=== PATIENT | female | born 1950 | race Caucasian/White ===

== ENCOUNTER 2017-02-16 10:25 | Outpatient (CLI) | payer MEDICARE, OTHER ==
[2017-02-16 11:04] LABS: BASOPHILS # (AUTO) 0.1 10^3/uL (0.0-0.1); BASOPHILS % (AUTO) 0.9 %; EOSINOPHILS # (AUTO) 0.3 10^3/uL (0.0-0.7); EOSINOPHILS % (AUTO) 5.7 %; HCT - HEMATOCRIT 43.4 % (37.0-47.0); HGB - HEMOGLOBIN 14.3 g/dL (12.0-16.0); LYMPHOCYTES # (AUTO) 1.3 10^3/uL (1.5-3.5); LYMPHOCYTES % (AUTO) 22.5 %; MEAN CORPUSCULAR HEMOGLOBIN 29.6 pg (27.0-31.0); MEAN CORPUSCULAR VOLUME 89.9 fL (81.0-99.0); MEAN PLATELET VOLUME 6.9 fL (7.9-10.8); MONOCYTES # (AUTO) 0.6 10^3/uL (0.0-1.0); MONOCYTES % (AUTO) 9.8 %; NEUTROPHILS # (AUTO) 3.6 10^3/uL (1.5-6.6); NEUTROPHILS % (AUTO) 61.1 %; RED BLOOD COUNT 4.83 10^6/uL (4.20-5.40); RED CELL DISTRIBUTION WIDTH 13.5 % (12.0-15.0); UNCORRECTED WHITE BLOOD COUNT 5.8 x10^3/uL; WHITE BLOOD COUNT 5.8 x10^3/uL (4.8-10.8)
[2017-02-16 11:10] LABS: ALBUMIN/GLOBULIN RATIO 1.6 (1.0-2.2); BILIRUBIN,TOTAL 0.5 mg/dL (0.2-1.0); BUN - BLOOD UREA NITROGEN 12 mg/dL (6-20); CALCIUM 8.8 mg/dL (8.5-10.3); CARBON DIOXIDE - CO2 23 mmol/L (21-32); CHLORIDE 108 mmol/L (101-111); CHOL/HDL RATIO 3.3 (<4.4); CHOLESTEROL 171 mg/dL; CREATININE 0.7 mg/dL (0.4-1.0); GFR - MDRD 84 (>89); GLUCOSE 109 mg/dL (70-100); HDL CHOLESTEROL 52 mg/dL; LDL/HDL RATIO 1.8 (<4.4); POTASSIUM 3.8 mmol/L (3.5-5.0); SODIUM 140 mmol/L (135-145); TOTAL PROTEIN 6.5 g/dL (6.7-8.2); TRIGLYCERIDES 117 mg/dL; VLDL CHOLESTEROL 23 mg/dL
[2017-02-16 11:25] LABS: WBC MORPHOLOGY (MULTIPLE) 2+ REACTIVE LYMPHS (NORMAL)
== END 2017-02-16 10:26 | disposition home or self-care (01) ==
LOC: LAB 10:25
PROVIDERS: ATTEND Family Medicine
DX: E66.01 Morbid (severe) obesity due to excess calories (principal); E78.5 Hyperlipidemia, unspecified
CPT/HCPCS: 36415; 80053; 80061; 84443; 85025

== ENCOUNTER 2017-02-18 10:03 | Outpatient (CLI) | payer MEDICARE, OTHER ==
--- NOTE | 2017-02-20 13:16 | Mammography Report ---
DIGITAL SCREENING MAMMOGRAM: 02/18/2017 CLINICAL INDICATION: A 67-year-old for screening. COMPARISON: 01/2016, 12/2014, 10/2013, 07/2012, 10/2010, 11/2009 TECHNIQUE: Routine CC and MLO projections were obtained of the breasts. FINDINGS: The breasts demonstrate scattered fibroglandular densities bilaterally. Coarse and puncta te, typically benign calcifications are present. No suspicious masses, clustered microcalcifications , or regions of architectural distortion are identified. IMPRESSION: BENIGN FINDINGS. RECOMMENDATION: Routine annual screening unless otherwise clinically indicated. BIRADS CATEGORY 2 - BENIGN FINDINGS. STANDARD QUALIFYING STATEMENTS 1. This examination was reviewed with the aid of Computer-Aided Detection (CAD). 2. A negative or benign imaging report should not delay biopsy if clinically suspicious findings are present. Consider surgical consultation if warranted. More than 5% of cancers are not identified by i maging. 3. Dense breasts may obscure an underlying neoplasm. JOB #: [id number] EXT JOB #:[id number]
== END 2017-02-18 10:04 | disposition home or self-care (01) ==
LOC: DI 10:03
PROVIDERS: ATTEND Family Medicine
DX: Z12.31 Encounter for screening mammogram for malignant neoplasm of breast (principal)
CPT/HCPCS: 77067

== ENCOUNTER 2017-02-25 08:54 | Outpatient (CLI) | payer MEDICARE, OTHER | END 2017-02-25 08:55 | disposition home or self-care (01) | LOC: DI 08:54 | PROVIDERS: ATTEND Family Medicine | DX: R00.2 Palpitations (principal); R01.1 Cardiac murmur, unspecified | CPT/HCPCS: 93306 ==

== ENCOUNTER 2017-09-30 20:38 | Emergency (ER) | payer MEDICARE, OTHER ==
[2017-09-30 20:47] VITALS: BP 141/88
[2017-09-30] MEDS ORDERED: predniSONE 20 MG TABLET PO STA (21:03)
--- NOTE | 2017-09-30 21:10 | ED Physician Documentation ---
PD HPI SKIN - Stated complaint Stated Complaint: BEE STING - Chief complaint Chief Complaint: Allergic Rx - History obtained from History obtained from: Patient - History of Present Illness Timing - onset: Yesterday Timing - details: Abrupt onset, Still present Location: RLE Quality / character: Painful, Discolored Associated symptoms: No: Fever, Myalgias Contributing factors: Insect bite /sting Similar symptoms before: No diagnosis Recently seen: Not recently seen - Additional information Additional information: Patient is a 67 year old female presenting to the emergency department after being stung by a bee. patient states that it stung her two days ago and the area of swelling is getting worse. Patient has tried ice and bendaryl with little relief. Patient has had symptoms like this once before on her arm. patient denies any wheezing, throat swelling, nausea or vomiting. Review of Systems Ten Systems: 10 systems reviewed and negative Respiratory: reports: Wheezing. 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 HEENT: Tonsil/Adenoidectomy - Present Medications Home Medications: Ambulatory Orders Medication Instructions Recorded Confirmed predniSONE [Prednisone] 40 mg PO DAILY 5 Days tablet 09/30/17 - Allergies Allergies/Adverse Reactions: Allergies Allergy/AdvReac Type Severity Reaction Status Date / Time Penicillins Allergy Unknown Verified 09/30/17 20:47 - Social History Does the pt smoke?: No Smoking Status: Never smoker Does the pt drink ETOH?: No Does the pt have substance abuse?: No - Immunizations Immunizations are current?: Yes PD ED PE NORMAL - Vitals Vital signs reviewed: Yes - General General: Alert and oriented X 3, No acute distress - HEENT HEENT: Atraumatic - Neck Neck: Supple, no meningeal sign - Cardiac Cardiac: RRR - Abdomen Abdomen: Soft - Neuro Neuro: Alert and oriented X 3 Eye Opening: Spontaneous - Psych Psych: Normal mood PD ED PE EXPANDED - HEENT HEENT: Other (no soft palate swelling) - Respiratory Respiratory: No: Distress, Wheezing - Extremities Extremities: Right thigh (erythema and tenderness 15cm by 8cm of right thigh) Results - Vitals Vitals: Vital Signs - 24 hr 09/30/17 20:44 Temperature 35.7 C L Heart Rate 104 H Respiratory 17 Rate Blood Pressure 141/88 H O2 Saturation 94 Oxygen O2 Source Room air PD MEDICAL DECISION MAKING - ED course Complexity details: reviewed old records, re-evaluated patient, considered differential, d/w patient ED course: Patient was seen and examined at bedside. Patient's symptoms were likely secondary to the insect sting and unlikely cellulitic at this time. Patient was treated with prednisone and she had benadryl at home and was driving. Patient required no further work up at this time and was stable for discharge with outpatient follow up. Departure - Departure Disposition: , Self Care Clinical Impression: Insect bites and stings Condition: Good Instructions: ED Bite Sting Insect Gen Allergic React Follow-Up: Aiden Zamora DO [Primary Care Provider] - As Needed Prescriptions: predniSONE [Prednisone] 40 mg PO DAILY 5 Days tablet Comments: Your symptoms today are being caused by the bee sting. you should continue with benadryl 50mg every 8hrs and prednisone daily. you can apply topical creams and ice to the area. you should return to the emergency department for shortness of breath, facial swelling, new worsening or uncontrollable symptoms.
== END 2017-09-30 21:17 | disposition home or self-care (01) ==
LOC: ED 20:38
DX: T63.441A Toxic effect of venom of bees, accidental (unintentional), initial encounter (principal)
CPT/HCPCS: 99283; J7512

== ENCOUNTER 2018-02-03 07:54 | Outpatient (CLI) | payer MEDICARE, OTHER ==
[2018-02-03 08:55] LABS: BASOPHILS % (AUTO) 0.3 %; EOSINOPHILS # (AUTO) 0.2 10^3/uL (0.0-0.7); EOSINOPHILS % (AUTO) 3.2 %; HGB - HEMOGLOBIN 14.5 g/dL (12.0-16.0); LYMPHOCYTES # (AUTO) 1.6 10^3/uL (1.5-3.5); LYMPHOCYTES % (AUTO) 29.4 %; MEAN CORPUSCULAR HEMOGLOBIN 30.4 pg (27.0-31.0); MEAN CORPUSCULAR VOLUME 89.5 fL (81.0-99.0); MEAN PLATELET VOLUME 7.4 fL (7.9-10.8); MONOCYTES # (AUTO) 0.5 10^3/uL (0.0-1.0); NEUTROPHILS # (AUTO) 3.2 10^3/uL (1.5-6.6); NEUTROPHILS % (AUTO) 58.1 %; PLT - PLATELET COUNT 320 10^3/uL (130-450); RED BLOOD COUNT 4.78 10^6/uL (4.20-5.40); RED CELL DISTRIBUTION WIDTH 13.8 % (12.0-15.0); WHITE BLOOD COUNT 5.5 x10^3/uL (4.8-10.8)
[2018-02-03 09:05] LABS: ALBUMIN 3.9 g/dL (3.2-5.5); ALBUMIN/GLOBULIN RATIO 1.6 (1.0-2.2); ALKALINE PHOSPHATASE 97 IU/L (42-121); ALT ALANINE AMINOTRANSFERASE 20 IU/L (10-60); AST ASPARTATE AMINOTRANSFERASE 17 IU/L (10-42); BILIRUBIN,TOTAL 0.9 mg/dL (0.2-1.0); BUN - BLOOD UREA NITROGEN 12 mg/dL (6-20); CALCIUM 8.7 mg/dL (8.5-10.3); CARBON DIOXIDE - CO2 25 mmol/L (21-32); CHLORIDE 108 mmol/L (101-111); CHOLESTEROL 187 mg/dL; CREATININE 0.8 mg/dL (0.4-1.0); GFR - MDRD 72 (>89); GLUCOSE 113 mg/dL (70-100); HDL CHOLESTEROL 47 mg/dL; LDL CHOLESTEROL,CALCULATED 113 mg/dL; LDL/HDL RATIO 2.4 (<4.4); SODIUM 139 mmol/L (135-145); TOTAL PROTEIN 6.3 g/dL (6.7-8.2); VLDL CHOLESTEROL 27 mg/dL
== END 2018-02-03 07:55 | disposition home or self-care (01) ==
LOC: LAB 07:54
PROVIDERS: ATTEND Family Medicine
DX: E78.5 Hyperlipidemia, unspecified (principal); R00.2 Palpitations
CPT/HCPCS: 36415; 80053; 80061; 83721; 84443; 85025

== ENCOUNTER 2018-02-22 09:59 | Outpatient (CLI) | payer MEDICARE, OTHER ==
--- NOTE | 2018-02-23 11:51 | Mammography Report ---
Reason: SCREENwTOMO Procedure Date: 02/22/2018 Accession Number: [id number] / [id number] Procedure: [facility]NAZ - Screening Mammo w/Sunny CPT Code: FULL RESULT: EXAM: Screening Mammo w/Sunny DATE: 02/22/2018 11:05 AM CLINICAL HISTORY: Routine screening TECHNIQUE: Bilateral CC and MLO views were obtained. COMPARISON: 02/18/2017, 02/06/2016, 01/02/2015, 11/01/2013 FINDINGS: There are scattered fibroglandular densities. No significant interval change. No suspicious masses, clustered microcalcifications, skin thickening, or regions of architectural distortion are identified. Multiple bilateral nodular densities and coarse calcifications appear unchanged. IMPRESSION: Benign findings RECOMMENDATION: Routine annual screening unless otherwise clinically indicated. BIRADS CATEGORY 2: Benign findings STANDARD QUALIFYING STATEMENTS: 1. This examination was not reviewed with the aid of Computer-Aided Detection (CAD). 2. A negative or benign imaging report should not delay biopsy if clinically suspicious findings are present. Consider surgical consultation if warrented. More than 5% of cancers are not identified by imaging. 3. Dense breasts may obscure an underlying neoplasm. 4. This examination was reviewed with the aid of 3D breast imaging (tomosynthesis).
== END 2018-02-22 10:00 | disposition home or self-care (01) ==
LOC: DI 09:59
DX: Z12.31 Encounter for screening mammogram for malignant neoplasm of breast (principal)
CPT/HCPCS: 77063; 77067

== ENCOUNTER 2019-03-09 11:04 | Outpatient (CLI) | payer MEDICARE, OTHER ==
--- NOTE | 2019-03-11 10:54 | Mammography Report ---
Reason: SCREENING MAMMO Procedure Date: 03/09/2019 Accession Number: [id number] / [id number] Procedure: SANAZ - Screening Mammo w/Sunny CPT Code: Final Report FULL RESULT: EXAM: Screening Mammo w/Sunny DATE: 03/09/2019 11:37 AM CLINICAL HISTORY: Routine screening TECHNIQUE: (B) - Bilateral CC and MLO views were obtained. COMPARISON: 02/22/2018, 02/18/2017, 02/06/2016, 01/02/2015, 11/01/2013, 08/02/2012, 11/06/2010 and 11/13/2009 PARENCHYMAL PATTERN: (A) - The breasts demonstrate scattered fibroglandular densities bilaterally. FINDINGS: No significant interval change. There are no suspicious masses, calcifications, or areas of distortion. Scattered benign calcifications and nodular areas of asymmetric density are unchanged. IMPRESSION: Negative examination. BI-RADS category 1. RECOMMENDATION: (ANNUAL) - Recommend routine annual screening mammography. BI-RADS CATEGORY: (1) - Negative. STANDARD QUALIFYING STATEMENTS: 1. This examination was not reviewed with the aid of Computer-Aided Detection (CAD). 2. A negative or benign imaging report should not preclude biopsy if clinically suspicious findings are present. 3. Dense breasts may obscure an underlying neoplasm. 4. This examination was reviewed with the aid of 3D breast imaging (tomosynthesis).
== END 2019-03-09 11:05 | disposition home or self-care (01) ==
LOC: DI 11:04
DX: Z12.31 Encounter for screening mammogram for malignant neoplasm of breast (principal)
CPT/HCPCS: 77063; 77067

== ENCOUNTER 2019-03-22 08:00 | Outpatient (CLI) | payer MEDICARE, OTHER ==
[2019-03-22 18:24] LABS: BASOPHILS % (AUTO) 0.7 %; EOSINOPHILS # (AUTO) 0.2 10^3/uL (0.0-0.7); EOSINOPHILS % (AUTO) 3.4 %; HGB - HEMOGLOBIN 13.7 g/dL (12.0-16.0); LYMPHOCYTES # (AUTO) 1.4 10^3/uL (1.5-3.5); LYMPHOCYTES % (AUTO) 24.4 %; MEAN CORPUSCULAR HEMOGLOBIN 28.7 pg (27.0-31.0); MEAN CORPUSCULAR HGB CONC 30.2 g/dL (32.0-36.0); MEAN CORPUSCULAR VOLUME 95.2 fL (81.0-99.0); MEAN PLATELET VOLUME 9.5 fL (7.9-10.8); MONOCYTES # (AUTO) 0.7 10^3/uL (0.0-1.0); MONOCYTES % (AUTO) 12.6 %; NEUTROPHILS # (AUTO) 3.3 10^3/uL (1.5-6.6); NEUTROPHILS % (AUTO) 58.2 %; PLT - PLATELET COUNT 350 10^3/uL (130-450); RED BLOOD COUNT 4.77 10^6/uL (4.20-5.40); RED CELL DISTRIBUTION WIDTH 13.5 % (12.0-15.0); WHITE BLOOD COUNT 5.7 x10^3/uL (4.8-10.8)
[2019-03-22 18:52] LABS: ALBUMIN 3.9 g/dL (3.2-5.5); ALBUMIN/GLOBULIN RATIO 1.6 (1.0-2.2); ALKALINE PHOSPHATASE 88 IU/L (42-121); ALT ALANINE AMINOTRANSFERASE 20 IU/L (10-60); AST ASPARTATE AMINOTRANSFERASE 20 IU/L (10-42); BILIRUBIN,TOTAL 0.5 mg/dL (0.2-1.0); BUN - BLOOD UREA NITROGEN 13 mg/dL (6-20); CALCIUM 8.5 mg/dL (8.5-10.3); CARBON DIOXIDE - CO2 24 mmol/L (21-32); CHLORIDE 109 mmol/L (101-111); CHOLESTEROL 206 mg/dL; CREATININE 0.7 mg/dL (0.4-1.0); GFR - MDRD 83 (>89); GLUCOSE 94 mg/dL (70-100); HDL CHOLESTEROL 51 mg/dL; LDL CHOLESTEROL,CALCULATED 127 mg/dL; LDL/HDL RATIO 2.5 (<4.4); SODIUM 141 mmol/L (135-145); TOTAL PROTEIN 6.3 g/dL (6.7-8.2); VLDL CHOLESTEROL 28 mg/dL
[2019-03-22 18:54] LABS: HB2 TOTAL 14.1 g/dL; HEMOGLOBIN A1C 0.66 g/dL; HEMOGLOBIN A1C % 6.4 % (4.6-6.2)
== END 2019-03-22 23:59 | disposition home or self-care (01) ==
LOC: LAB.WCP 08:00
PROVIDERS: ATTEND Family Medicine
DX: E66.01 Morbid (severe) obesity due to excess calories (principal); R07.89 Other chest pain; E78.5 Hyperlipidemia, unspecified
CPT/HCPCS: 36415; 80053; 80061; 83036; 83721; 85025

== ENCOUNTER 2019-04-28 07:40 | Day surgery (SDC) | payer MEDICARE, OTHER ==
[2019-04-28] MEDS ORDERED: LACTATED RINGERS 1,000 ML IV ONE ×2 (08:10→11:00)
[2019-04-28] MEDS ORDERED: ONDANSETRON 4 MG/2 ML VIAL ONE ×2 (08:56→10:32)
[2019-04-28] MEDS ORDERED: MIDAZOLAM 2 MG/2 ML VIAL IVP ONE ×2 (09:01→09:41)
[2019-04-28] MEDS ORDERED: fentaNYL 100 MCG/2 ML VIAL IVP ONE (09:01)
[2019-04-28] MEDS ORDERED: fentaNYL 250 MCG/5 ML VIAL IVP ONE (09:41)
[2019-04-28 12:12] VITALS: BP 111/85
== END 2019-04-28 07:41 | disposition home or self-care (01) ==
LOC: SDS 07:40
PROVIDERS: ATTEND Surgery
PROC: 0DB48ZX Excision of Esophagogastric Junction, Via Natural or Artificial Opening Endoscopic, Diagnostic (ICD-10-PCS; principal; 2019-04-28 09:00)
DX: K21.0 Gastro-esophageal reflux disease with esophagitis (principal); E66.01 Morbid (severe) obesity due to excess calories; Z68.41 Body mass index [BMI] 40.0-44.9, adult
CPT/HCPCS: 43239; J3010; J7120

== ENCOUNTER 2020-02-22 10:40 | Outpatient (CLI) | payer MEDICARE, OTHER ==
[2020-02-22] MEDS ORDERED: IOVERSOL 320 50 ML VIAL ONE (10:54)
[2020-02-22 11:11] LABS: CREATININE 0.8 mg/dL (0.4-1.0)
[2020-02-22] MEDS ORDERED: IOVERSOL 320 100 ML VIAL IVP ONE ×2 (12:19→17:35)
--- NOTE | 2020-02-22 13:33 | CT Report ---
PROCEDURE: CHEST W INDICATIONS: ESOPHAGEAL CA CONTRAST: IV CONTRAST: Optiray 320 ml: 100 PO CONTRAST: *NO PO CONTRAST TECHNIQUE: After the administration of intravenous contrast, 5 mm thick sections acquired from the pulmonary api keri to the posterior costophrenic angles. 7 mm thick coronal MIP reformats were acquired. For radia tion dose reduction, the following was used: automated exposure control, adjustment of mA and/or kV according to patient size. COMPARISON: None. FINDINGS: Image quality: Excellent. Lungs and pleura: No acute air space opacities. No pleural effusions or pneumothorax. Central and peripheral airways are patent and normal in caliber. Mediastinum: Heart size is normal. No pericardial effusion. Coronary artery disease. No mediastina l or hilar adenopathy by size criteria. Thoracic aorta and central pulmonary arteries are normal in size. Esophagus is normal in caliber. Small hiatal hernia. Bones and chest wall: No suspicious bony lesions. No vertebral body compression fractures. No axil alley or supraclavicular adenopathy by size criteria. Thyroid gland is unremarkable as visualized. Abdomen: Gallstones are present in the gallbladder. IMPRESSION: 1. No evidence metastatic disease in the chest. 2. Small hiatal hernia. 3. Coronary artery disease. 4. Gallstones. Reviewed by: Reginald Flores MD on 02/22/2020 1:32 PM PDT Approved by: Reginald Flores MD on 02/22/2020 1:32 PM PDT Station ID: [id number]
--- NOTE | 2020-02-22 13:46 | CT Report ---
PROCEDURE: Abdomen/Pelvis W INDICATIONS: ESOPHAGEAL CA CONTRAST: IV CONTRAST: Optiray 320 ml: 100 PO CONTRAST: *NO PO CONTRAST TECHNIQUE: After the administration of oral and intravenous contrast, 5 mm thick sections acquired from the diap hragms to the symphysis. 5 mm thick coronal and sagittal reformats were acquired. For radiation dos e reduction, the following was used: automated exposure control, adjustment of mA and/or kV accordin g to patient size. COMPARISON: None. FINDINGS: Image quality: Excellent. ABDOMEN: Lung bases: Lung bases are clear. Heart size is normal. There is an ill-defined nodular density in the region of the left epicardial fat is of uncertain etiology. Measures approximately 1.0 cm on marielle ge 9/2. It may represent a lymph node. Solid organs: Liver and spleen are normal in size and enhancement. There is a small low-density live r lesion on image 21/2, which is too small to characterize, and likely represents a cyst versus heman gioma. No suspicious liver lesions are identified. Gallbladder contains gallstones Biliary system i s non dilated. Pancreas enhances normally. No adrenal nodules. Kidneys demonstrate normal size and enhancement, without hydronephrosis. Peritoneum and bowel: There is thickening in the region of the lower esophagus. This is near the GE j unction. Bowel loops demonstrate normal wall thickness and caliber. No free fluid or air. Nodes and vessels: No retroperitoneal or mesenteric adenopathy by size criteria. Aorta and inferior vena cava are normal in size. Miscellaneous: No ventral hernias. PELVIS: Genitourinary: Bladder wall thickness is normal. Miscellaneous: No inguinal hernias or adenopathy. Bones: No suspicious bony lesions. No vertebral body compression fractures. IMPRESSION: 1. Thickening in the region of the lower esophagus near the GE junction may represent the patient's e sophageal primary. 2. Possible mildly prominent lymph node in the left epicardial fat. 3. Gallstones. 4. Otherwise unremarkable study. Reviewed by: Reginald Flores MD on 02/22/2020 1:44 PM PDT Approved by: Reginald Flores MD on 02/22/2020 1:44 PM PDT Station ID: [id number]
[2020-02-22] MEDS ORDERED: IOVERSOL 320 50 ML VIAL PO ONE (17:35)
== END 2020-02-22 10:41 | disposition home or self-care (01) ==
LOC: DI 10:40
PROVIDERS: ATTEND Internal Medicine Gastroenterology
DX: C15.9 Malignant neoplasm of esophagus, unspecified (principal); K44.9 Diaphragmatic hernia without obstruction or gangrene; K80.20 Calculus of gallbladder without cholecystitis without obstruction; I25.10 Atherosclerotic heart disease of native coronary artery without angina pectoris
CPT/HCPCS: 36415; 71260; 74177; 82565; 84520; Q9967

== ENCOUNTER 2020-03-23 16:40 | Outpatient (CLI) | payer MEDICARE, OTHER | END 2020-03-23 16:41 | disposition home or self-care (01) | LOC: COV 16:40 | PROVIDERS: ATTEND Surgery | DX: Z01.812 Encounter for preprocedural laboratory examination (principal); Z20.828 Contact with and (suspected) exposure to other viral communicable diseases ==

== ENCOUNTER 2020-03-28 08:55 | Outpatient (CLI) | payer MEDICARE, OTHER | END 2020-03-28 08:56 | disposition home or self-care (01) | LOC: DI 08:55 | PROVIDERS: ATTEND Surgery | DX: C15.9 Malignant neoplasm of esophagus, unspecified (principal) | CPT/HCPCS: 93306 ==

== ENCOUNTER 2020-03-29 10:48 | Day surgery (SDC) | payer MEDICARE, OTHER ==
[2020-03-29] MEDS ORDERED: CEFAZOLIN SODIUM IN 0.9 % NACL 2 GM/100 ML BAG IV ONE (11:05)
[2020-03-29] MEDS ORDERED: LACTATED RINGERS 1,000 ML IV ONE ×2 (11:33→14:22)
--- NOTE | 2020-03-29 12:39 | ANESTHESIA ---
Pre-Anesthesia VS, & Labs - Diagnosis esophageal carcinoma - Procedure port placement Vital Signs: Temp Pulse Resp BP Pulse Ox 36.1 C L 90 16 138/72 H 96 03/29/20 11:00 03/29/20 11:00 03/29/20 11:00 03/29/20 11:00 03/29/20 11:00 Height: 5 ft 6 in Weight (kg): 113.5 kg Body Mass Index: 40.4 BMI Classification: Morbidly Obese - NPO >8 hours - Is Patient ?: No - Lab Results Lab results reviewed: Yes Home Medications and Allergies Atorvastatin [Lipitor] 10 mg PO DAILY 04/27/19 Allergies/Adverse Reactions: Allergies Allergy/AdvReac Type Severity Reaction Status Date / Time Penicillins Allergy Unknown Verified 03/16/20 09:59 Anes History & Medical History - Anesthetic History Anesthesia Complications: reports: Post-Operative Nausea/Vomiting (NM EGD), Muscle weakness Family history of Malignant Hyperthermia: Denies - Medical History Cardiovascular: reports: High cholesterol Pulmonary: reports: None Gastrointestinal: reports: None Urinary: reports: None Musculoskeletal: reports: None Endocrine/Autoimmune: reports: None Skin: reports: None Smoking Status: Never smoker - Surgical History General: Colonoscopy, EGD Eyes Ears Nose Throat (EENT): Tonsil/Adenoidectomy Gynecologic: Hysterectomy Exam General: Alert, Oriented x3, Cooperative Dental: WNL Mouth Openin Fingerbreadth Neck Mobility: Normal Mallampati classification: II Respiratory: Lungs clear, Normal breath sounds, No respiratory distress Cardiovascular: Regular rate Neurological: Normal speech Mental/Cognitive Status: Alert/Oriented X3, Normal for patient Cognitive Status: Within normal limits Plan Anesthesia Type: MAC Consent for Procedure(s) Verified and Reviewed: Yes Code Status: Attempt Resuscitation ASA classification: 3-Severe systemic disease Is this case an emergency?: No
[2020-03-29] MEDS ORDERED: BUPIVACAINE 0.5% PF 30 ML VIAL ONE (12:55)
[2020-03-29] MEDS ORDERED: fentaNYL 100 MCG/2 ML VIAL IVP ONE (13:06)
[2020-03-29] MEDS ORDERED: MIDAZOLAM 2 MG/2 ML VIAL IVP ONE (13:06)
[2020-03-29] MEDS ORDERED: PROPOFOL 200 MG/20 ML VIAL IVP ONE (13:06)
[2020-03-29] MEDS ORDERED: BUPIVACAINE 0.5% PF 30 ML VIAL SUBQ ONE ×2 (13:35→14:07)
--- NOTE | 2020-03-29 14:37 | OPERATIVE REPORT ---
Operative Report - General Procedure Date: 03/29/20 Planned Procedure: Central venous access for chemotherapy - Portacath placement Pre-Op Diagnosis: Esophageal carcinoma Procedure Performed: LEFT subclavian vein Portacath placement Post Op Diagnosis: Same - Procedure Note Primary Surgeon: Elías Yoon MD Anesthesia Provider: Brijesh Lance CRNA Anesthesia Technique: Local (22 mL 1/2% marcaine), MAC IV Fluids (mL): 600 Estimated Blood Loss (mL): 10 Drain/Tube Type: Other (None.) Indications: Esophageal carcinoma with need for central venous access for chemotherapy Findings: Chest x-ray confirms placement in RIGHT atrium Complications: None. - Other Other Information/Narrative: Dictation program disabled for this s0 watch for follow up operative note.
[2020-03-29] MEDS ORDERED: HYDROcod/ACETAM 5/325 MG TABLET PO PRN (14:40)
[2020-03-29] MEDS ORDERED: ONDANSETRON 4 MG/2 ML VIAL IVP PRN (14:40)
--- NOTE | 2020-03-29 14:47 | ANESTHESIA POST OP EVALUATION ---
Anesthesia Post Eval - Post Anesthesia Eval Vitals: Last Vital Signs Temp 36.2 C L 03/29/20 14:37 Pulse 78 03/29/20 14:37 Resp 13 03/29/20 14:37 BP 142/76 H 03/29/20 14:37 Pulse Ox 96 03/29/20 14:37 CV Function Including HR & BP: positive: Stable Pain Control: positive: Satisfactory Nausea & Vomiting: positive: Negative Mental Status: positive: Baseline Respiratory Status: Airway Patent Hydration Status: Satisfactory Anesthesia Complications: positive: None
--- NOTE | 2020-03-29 15:09 | XRAY Report ---
PROCEDURE: Chest for Line Placement INDICATIONS: LINE PLACEMENT, OR #2 TECHNIQUE: One view of the chest was acquired. COMPARISON: 03/29/2020 at 1351 hours FINDINGS: Surgical changes and devices: Left chest wall Port-A-Cath. Lungs and pleura: No pleural effusions or pneumothorax. Lungs are clear. Mediastinum: Mediastinal contours appear normal. Heart size is normal. Bones and chest wall: No suspicious bony lesions. Overlying soft tissues appear unremarkable. IMPRESSION: Status post placement of left chest wall Port-A-Cath. No acute cardiopulmonary disease process. Reviewed by: Pamela Contreras MD, PhD on 03/29/2020 3:07 PM PST Approved by: Pamela Contreras MD, PhD on 03/29/2020 3:07 PM PST Station ID: [id number]
--- NOTE | 2020-03-29 15:09 | XRAY Report ---
PROCEDURE: Post Port Placement 1V CXR INDICATIONS: s/p Portacath placement TECHNIQUE: One view of the chest was acquired. COMPARISON: 03/29/2020 at 1351 hours. FINDINGS: Surgical changes and devices: Left chest wall Port-A-Cath.. Lungs and pleura: No pleural effusions or pneumothorax. Lungs are clear. Mediastinum: Mediastinal contours appear normal. Heart size is normal. Bones and chest wall: No suspicious bony lesions. Overlying soft tissues appear unremarkable. IMPRESSION: Left chest wall Port-A-Cath redemonstrated. No acute cardiopulmonary disease process. Reviewed by: Pamela Contreras MD, PhD on 03/29/2020 3:08 PM PST Approved by: Pamela Contreras MD, PhD on 03/29/2020 3:08 PM PST Station ID: [id number]
[2020-03-29 15:11] VITALS: BP 140/72
== END 2020-03-29 10:49 | disposition home or self-care (01) ==
LOC: SDS 10:48
PROVIDERS: ATTEND Surgery
DX: C15.9 Malignant neoplasm of esophagus, unspecified (principal); R13.10 Dysphagia, unspecified; E66.01 Morbid (severe) obesity due to excess calories; Z68.41 Body mass index [BMI] 40.0-44.9, adult
CPT/HCPCS: 36561; 71045; C1788; J0690; J7120

== ENCOUNTER 2020-10-22 08:00 | Outpatient (CLI) | payer MEDICARE, OTHER | END 2020-10-22 23:59 | disposition home or self-care (01) | LOC: LAB.N 08:00 | PROVIDERS: ATTEND Nurse Practitioner | DX: R39.9 Unspecified symptoms and signs involving the genitourinary system (principal) | CPT/HCPCS: 87086; 87181 ==

== ENCOUNTER 2020-11-04 15:29 | Outpatient (CLI) | payer MEDICARE, OTHER | END 2020-11-04 23:59 | disposition home or self-care (01) | LOC: LAB.R 15:29 | PROVIDERS: ATTEND Physician Assistant Medical | DX: N39.0 Urinary tract infection, site not specified (principal) | CPT/HCPCS: 87086; 87181 ==

== ENCOUNTER 2021-01-22 13:48 | Outpatient (CLI) | payer MEDICARE, OTHER ==
--- NOTE | 2021-01-23 12:00 | Mammography Report ---
BILATERAL DIGITAL SCREENING MAMMOGRAM 3D/2D: 01/22/2021 CLINICAL: Routine screening. Comparison is made to exams dated: 03/09/2019 mammogram, 02/22/2018 mammogram - [facility], 02/06/2016 mammogram, 01/02/2015 mammogram, 11/01/2013 mammogram, and 08/02/2012 mammogram - [facility]. There are scattered fibroglandular elements in both breasts. No significant masses, calcifications, or other findings are seen in either breast. There has been no significant interval change. IMPRESSION: NEGATIVE There is no mammographic evidence of malignancy. A 1 year screening mammogram is recommended. This exam was interpreted at Station ID: [id number]. NOTE: For mammograms, a report in lay terms will be sent to the patient. Approximately 15% of breast malignancies will not be visualized mammographically. In the management of a palpable breast mass, a negative mammogram must not discourage biopsy of a clinically suspicious lesion. Electronically Signed By: Satnam Hammond M.D. at/erick:01/22/2021 14:57:45 ACR BI-RADS Category 1: Negative 3341F PARENCHYMAL PATTERN: (A) - The breast(s) demonstrate(s) scattered fibroglandular densities. BI-RADS CATEGORY: (1) - 1 RECOMMENDATION: (ANNUAL) - Recommend routine annual screening mammography. [id number] 1 year screening LATERALITY: (B)
== END 2021-01-22 13:49 | disposition home or self-care (01) ==
LOC: DI.N 13:48
DX: Z12.31 Encounter for screening mammogram for malignant neoplasm of breast (principal)

== ENCOUNTER 2021-02-19 07:25 | Day surgery (SDC) | payer MEDICARE, OTHER ==
[2021-02-19] MEDS ORDERED: PROPOFOL 500 MG/50 ML 500 MG/50 ML VIAL ONE (08:00)
[2021-02-19] MEDS ORDERED: LACTATED RINGERS 1,000 ML IV ONE (08:03)
[2021-02-19] MEDS ORDERED: MIDAZOLAM 2 MG/2 ML VIAL ONE (08:07)
--- NOTE | 2021-02-19 08:18 | ANESTHESIA ---
Pre-Anesthesia VS, & Labs - Diagnosis family history of colon cancer - Procedure colonoscopy Vital Signs: Temp Pulse Resp BP Pulse Ox 36 C L 63 18 108/58 L 99 02/19/21 07:30 02/19/21 07:30 02/19/21 07:30 02/19/21 07:30 02/19/21 07:30 Height: 5 ft 6 in Weight (kg): 91.9 kg Body Mass Index: 32.7 BMI Classification: Obese - NPO >8 hours - Is Patient ?: No - Lab Results Lab results reviewed: Yes Home Medications and Allergies Atorvastatin [Lipitor] 10 mg PO DAILY 04/27/19 Allergies/Adverse Reactions: Allergies Allergy/AdvReac Type Severity Reaction Status Date / Time Penicillins Allergy Unknown Verified 12/07/20 13:51 Anes History & Medical History - Anesthetic History Anesthesia Complications: reports: No previous complications Family history of Anesthesia Complications: Denies Family history of Malignant Hyperthermia: Denies - Medical History Cardiovascular: reports: High cholesterol Pulmonary: reports: None Gastrointestinal: reports: None Urinary: reports: None Musculoskeletal: reports: None Endocrine/Autoimmune: reports: None Skin: reports: None Smoking Status: Never smoker - Surgical History General: reports: Colonoscopy, EGD Eyes Ears Nose Throat (EENT): reports: Tonsil/Adenoidectomy Gynecologic: reports: Hysterectomy Exam General: Alert, Oriented x3, Cooperative, No acute distress Mouth Openin Fingerbreadth Neck Mobility: Normal Mallampati classification: I Respiratory: Lungs clear, Normal breath sounds, No respiratory distress, No accessory muscle use Cardiovascular: Regular rate, Normal S1, Normal S2, No murmurs Plan Anesthesia Type: General, Total IV Consent for Procedure(s) Verified and Reviewed: Yes Code Status: Attempt Resuscitation ASA classification: 2-Mild systemic disease Is this case an emergency?: No
[2021-02-19] MEDS ORDERED: LACTATED RINGERS 400 ML IV ONE (09:06)
[2021-02-19 09:31] VITALS: BP 125/71
--- NOTE | 2021-02-19 12:09 | ANESTHESIA POST OP EVALUATION ---
Anesthesia Post Eval - Post Anesthesia Eval Vitals: Last Vital Signs Temp 36.7 C 02/19/21 09:29 Pulse 63 02/19/21 09:29 Resp 16 02/19/21 09:29 BP 125/71 02/19/21 09:29 Pulse Ox 100 02/19/21 09:29 CV Function Including HR & BP: Stable Pain Control: Satisfactory Nausea & Vomiting: Negative Mental Status: Baseline Respiratory Status: Airway Patent Hydration Status: Satisfactory Anesthesia Complications: None
== END 2021-02-19 07:26 | disposition home or self-care (01) ==
LOC: SDS 07:25
PROVIDERS: ATTEND Surgery
PROC: 0DBM8ZZ Excision of Descending Colon, Via Natural or Artificial Opening Endoscopic (ICD-10-PCS; 2021-02-19)
PROC: 0DBH8ZZ Excision of Cecum, Via Natural or Artificial Opening Endoscopic (ICD-10-PCS; 2021-02-19)
PROC: 0DBK8ZZ Excision of Ascending Colon, Via Natural or Artificial Opening Endoscopic (ICD-10-PCS; principal; 2021-02-19 08:30)
DX: Z12.11 Encounter for screening for malignant neoplasm of colon (principal); D12.2 Benign neoplasm of ascending colon; D12.0 Benign neoplasm of cecum; K51.40 Inflammatory polyps of colon without complications; K57.30 Diverticulosis of large intestine without perforation or abscess without bleeding; K64.8 Other hemorrhoids; K64.4 Residual hemorrhoidal skin tags; Z80.0 Family history of malignant neoplasm of digestive organs; Z85.01 Personal history of malignant neoplasm of esophagus; E66.9 Obesity, unspecified; Z68.32 Body mass index [BMI] 32.0-32.9, adult
CPT/HCPCS: 45380; J7120

== ENCOUNTER 2021-03-15 10:16 | Outpatient (CLI) | payer MEDICARE, OTHER | END 2021-03-15 10:17 | disposition home or self-care (01) | LOC: DI 10:16 | PROVIDERS: ATTEND Family Medicine | DX: I51.7 Cardiomegaly (principal); Z92.3 Personal history of irradiation | CPT/HCPCS: 93306 ==

== ENCOUNTER 2021-04-03 11:54 | Outpatient (CLI) | payer MEDICARE, OTHER ==
[2021-04-03 18:33] LABS: CHOL/HDL RATIO 3.1 (<4.4); CHOLESTEROL 207 mg/dL; HDL CHOLESTEROL 67 mg/dL; LDL CHOLESTEROL,CALCULATED 115 mg/dL; LDL/HDL RATIO 1.7 (<4.4); TRIGLYCERIDES 124 mg/dL; VLDL CHOLESTEROL 25 mg/dL
[2021-04-03 20:14] LABS: ESTIMATED AVERAGE GLUCOSE 120 mg/dL (70-100); HEMOGLOBIN A1c% 5.8 % (4.27-6.07)
== END 2021-04-03 23:59 | disposition home or self-care (01) ==
LOC: LAB.WCP 11:54
PROVIDERS: ATTEND Family Medicine
DX: E78.5 Hyperlipidemia, unspecified (principal); R73.01 Impaired fasting glucose
CPT/HCPCS: 36415; 80061; 83036; 83721

== ENCOUNTER 2022-02-26 13:26 | Outpatient (CLI) | payer MEDICARE, OTHER ==
--- NOTE | 2022-02-27 10:37 | Mammography Report ---
BILATERAL DIGITAL SCREENING MAMMOGRAM 3D/2D: 02/26/2022 CLINICAL: Routine screening. Comparison is made to exams dated: 01/22/2021 mammogram, 03/09/2019 mammogram, 02/22/2018 mammogram, 02/18/2017 mammogram - [facility], and 02/06/2016 mammogram - [facility]. There are scattered areas of fibroglandular density in both breasts (category b / 25%-50% glandular t issue). There are benign calcifications in both breasts. No significant masses, calcifications, or other findings are seen in either breast. There has been no significant interval change. IMPRESSION: BENIGN There is no mammographic evidence of malignancy. A 1 year screening mammogram is recommended. Based on the Tyrer Cuzick model (a risk assessment model) the patients lifetime risk is 3.5% and her 10 year risk is 2.4%. According to the ACR, ACS, and NCCN guidelines, an annual breast MRI exam arnoldo g with mammogram is recommended if the patients lifetime risk is 20% or greater. This exam was interpreted at Station ID: [id number]. NOTE: For mammograms, a report in lay terms will be sent to the patient. Approximately 15% of breast malignancies will not be visualized mammographically. In the management of a palpable breast mass, a negative mammogram must not discourage biopsy of a clinically suspicious lesion. Electronically Signed By: Satnam carmichael/erick:02/26/2022 17:52:58 ACR BI-RADS Category 2: Benign Finding(s) 3342F PARENCHYMAL PATTERN: (A) - The breast(s) demonstrate(s) scattered fibroglandular densities. BI-RADS CATEGORY: (2) - 2 RECOMMENDATION: (ANNUAL) - Recommend routine annual screening mammography. [id number] 1 year screening LATERALITY: (B)
== END 2022-02-26 13:27 | disposition home or self-care (01) ==
LOC: DI 13:26
DX: Z12.31 Encounter for screening mammogram for malignant neoplasm of breast (principal)

== ENCOUNTER 2022-05-09 18:36 | Emergency (ER) | payer MEDICARE, OTHER ==
[2022-05-09 19:21] LABS: BASOPHILS % (AUTO) 0.7 %; EOSINOPHILS # (AUTO) 0.2 10^3/uL (0.0-0.7); EOSINOPHILS % (AUTO) 3.5 %; HGB - HEMOGLOBIN 12.7 g/dL (12.0-16.0); LYMPHOCYTES # (AUTO) 1.2 10^3/uL (1.5-3.5); LYMPHOCYTES % (AUTO) 25.6 %; MEAN CORPUSCULAR HEMOGLOBIN 29.4 pg (27.0-31.0); MEAN CORPUSCULAR VOLUME 94.9 fL (81.0-99.0); MEAN PLATELET VOLUME 8.5 fL (7.9-10.8); MONOCYTES # (AUTO) 0.7 10^3/uL (0.0-1.0); MONOCYTES % (AUTO) 14.4 %; NEUTROPHILS # (AUTO) 2.5 10^3/uL (1.5-6.6); NEUTROPHILS % (AUTO) 55.6 %; PLT - PLATELET COUNT 236 10^3/uL (130-450); RED BLOOD COUNT 4.32 10^6/uL (4.20-5.40); RED CELL DISTRIBUTION WIDTH 13.1 % (12.0-15.0); WHITE BLOOD COUNT 4.6 x10^3/uL (4.8-10.8)
--- NOTE | 2022-05-09 20:04 | ED Physician Documentation ---
History of Present Illness - Stated complaint Stated Complaint: RAPID HEARTRATE,WEAKNESS - Chief complaint Chief Complaint: Cardiac - History obtained from History obtained from: Patient - Additonal information Additional information: 72-year-old woman with history of esophageal cancer but no history of heart problems. For the last several months has been dealing with intermittent palpitations. When it happens it feels like "a popcorn popper is going off in my chest." It usually happens at rest. It is not painful. She had a 2-week Holter monitor recently without findings, but she did not have any episodes while wearing the Holter monitor. 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: Hysterectomy HEENT: Tonsil/Adenoidectomy - Present Medications Home Medications: Ambulatory Orders Medication Instructions Recorded Confirmed Atorvastatin [Lipitor] 10 mg PO DAILY 04/27/19 05/02/22 Pantoprazole [Protonix] 40 mg PO DAILY 02/22/21 05/02/22 - Allergies Allergies/Adverse Reactions: Allergies Allergy/AdvReac Type Severity Reaction Status Date / Time guaifenesin [From Robitussin] Allergy Unknown Verified 05/09/22 18:49 Penicillins Allergy Unknown Verified 05/09/22 18:49 - Social History Does the pt smoke?: No Smoking Status: Never smoker Does the pt drink ETOH?: No Does the pt have substance abuse?: No - Immunizations Immunizations are current?: Yes PD ED PE NORMAL - Vitals Vital signs reviewed: Yes - General General: Alert and oriented X 3, No acute distress - Cardiac Cardiac: RRR, No murmur - Respiratory Respiratory: No respiratory distress, Clear bilaterally - Abdomen Abdomen: Non tender - Neuro Neuro: Alert and oriented X 3, Normal speech Results - Vitals Vitals: Vital Signs - 24 hr 05/09/22 05/09/22 18:42 20:16 Temperature 36.0 C L Heart Rate 86 68 Respiratory 16 13 Rate Blood Pressure 152/85 H 149/90 H O2 Saturation 96 100 Oxygen O2 Source Room air - EKG (time done) 1851 Rate: Rate (enter#) (77) Rhythm: NSR [place]: Normal QRS: Normal Ischemia: Normal ST segments - Labs Labs: Laboratory Tests 05/09/22 05/09/22 05/09/22 19:16 19:16 19:16 WBC 4.6 L RBC 4.32 Hgb 12.7 Hct 41.0 MCV 94.9 MCH 29.4 MCHC 31.0 L RDW 13.1 Plt Count 236 MPV 8.5 Neut # (Auto) 2.5 Lymph # (Auto) 1.2 L [place] # (Auto) 0.7 Eos # (Auto) 0.2 Baso # (Auto) 0.0 Absolute Nucleated RBC 0.00 Nucleated RBC % 0.0 Sodium 140 Potassium 4.0 Chloride 104 Carbon Dioxide 28 Anion Gap 8.0 BUN 17 Creatinine 1.0 Estimated GFR (MDRD) 55 L Glucose 108 H Calcium 9.0 Magnesium 2.0 TSH 2.23 PD Medical Decision Making - ED course ED course: She presents with an exacerbation of chronic palpitations with unclear diagnosis. She had no ectopy or arrhythmias while on the monitor here and no episodes of palpitations while here. Departure - Departure Disposition: Home, Self Care Clinical Impression: Palpitations Condition: Good Record reviewed to determine appropriate education?: Yes Instructions: ED Palpitations Comments: Follow-up with your doctor for repeat Holter monitoring. Return for new or worsening symptoms.
[2022-05-09 21:16] VITALS: BP 113/61
== END 2022-05-09 21:23 | disposition home or self-care (01) ==
LOC: ED 18:36
DX: R00.2 Palpitations (principal)
CPT/HCPCS: 36415; 80048; 83735; 84443; 85025; 93005; 99283; 99284

== ENCOUNTER 2022-07-21 09:54 | Outpatient (CLI) | payer MEDICARE, OTHER ==
[2022-07-21 10:08] LABS: BASOPHILS % (AUTO) 0.8 %; EOSINOPHILS # (AUTO) 0.2 10^3/uL (0.0-0.7); EOSINOPHILS % (AUTO) 5.3 %; HCT - HEMATOCRIT 43.9 % (37.0-47.0); HGB - HEMOGLOBIN 13.7 g/dL (12.0-16.0); LYMPHOCYTES # (AUTO) 0.8 10^3/uL (1.5-3.5); LYMPHOCYTES % (AUTO) 21.9 %; MEAN CORPUSCULAR HEMOGLOBIN 29.3 pg (27.0-31.0); MEAN CORPUSCULAR HGB CONC 31.2 g/dL (32.0-36.0); MEAN PLATELET VOLUME 8.3 fL (7.9-10.8); MONOCYTES # (AUTO) 0.5 10^3/uL (0.0-1.0); MONOCYTES % (AUTO) 12.1 %; NEUTROPHILS # (AUTO) 2.3 10^3/uL (1.5-6.6); NEUTROPHILS % (AUTO) 59.6 %; PLT - PLATELET COUNT 259 10^3/uL (130-450); RED BLOOD COUNT 4.67 10^6/uL (4.20-5.40); RED CELL DISTRIBUTION WIDTH 12.8 % (12.0-15.0); WHITE BLOOD COUNT 3.8 x10^3/uL (4.8-10.8)
[2022-07-21 10:27] LABS: ALBUMIN/GLOBULIN RATIO 1.4 (1.0-2.2); ALKALINE PHOSPHATASE 84 IU/L (42-121); ALT ALANINE AMINOTRANSFERASE 20 IU/L (10-60); AST ASPARTATE AMINOTRANSFERASE 18 IU/L (10-42); BILIRUBIN,TOTAL 0.6 mg/dL (0.2-1.0); BUN - BLOOD UREA NITROGEN 15 mg/dL (6-20); CALCIUM 9.1 mg/dL (8.5-10.3); CARBON DIOXIDE - CO2 28 mmol/L (21-32); CHLORIDE 108 mmol/L (101-111); CHOL/HDL RATIO 2.2 (<4.4); CHOLESTEROL 188 mg/dL; CK- CREATINE KINASE 164 IU/L (22-269); CREATININE 0.8 mg/dL (0.4-1.0); GFR - MDRD 71 (>89); GLUCOSE 111 mg/dL (70-100); HDL CHOLESTEROL 84 mg/dL; LDL CHOLESTEROL,CALCULATED 88 mg/dL; POTASSIUM 3.9 mmol/L (3.5-5.0); SODIUM 143 mmol/L (135-145); TOTAL PROTEIN 6.9 g/dL (6.7-8.2); TRIGLYCERIDES 80 mg/dL; VLDL CHOLESTEROL 16 mg/dL
[2022-07-22 07:10] LABS: HCV AB Non Reactive (Non Reactive)
== END 2022-07-21 09:55 | disposition home or self-care (01) ==
LOC: LAB 09:54
PROVIDERS: ATTEND Internal Medicine
DX: Z00.00 Encounter for general adult medical examination without abnormal findings (principal); C15.9 Malignant neoplasm of esophagus, unspecified; C16.9 Malignant neoplasm of stomach, unspecified; E78.5 Hyperlipidemia, unspecified; L60.9 Nail disorder, unspecified; R00.2 Palpitations; R55 Syncope and collapse; Z11.59 Encounter for screening for other viral diseases; Z79.899 Other long term (current) drug therapy
CPT/HCPCS: 36415; 80053; 80061; 82550; 83721; 84443; 85025; 86803

== ENCOUNTER 2022-07-23 08:00 | Outpatient (CLI) | payer MEDICARE, OTHER ==
[2022-07-23 12:52] LABS: ESTIMATED AVERAGE GLUCOSE 123 mg/dL (70-100); HEMOGLOBIN A1c% 5.9 % (4.27-6.07)
== END 2022-07-23 23:59 | disposition home or self-care (01) ==
LOC: LAB.R 08:00
PROVIDERS: ATTEND Internal Medicine
DX: R73.01 Impaired fasting glucose (principal)
CPT/HCPCS: 83036

== ENCOUNTER 2022-08-11 07:32 | Outpatient (CLI) | payer MEDICARE, OTHER ==
[~2022-08-11 07:32] MED LIST: MIDAZOLAM 2 MG/2 ML VIAL ONE; ONDANSETRON 4 MG/2 ML VIAL ONE; fentaNYL 100 MCG/2 ML VIAL ONE
[2022-08-11 08:19] LABS: PARTIAL THROMBOPLASTIN TIME 38.7 secs (24.9-33.3)
[2022-08-11] MEDS ORDERED: LIDOCAINE-MPF 1% 5 ML VIAL ONE ×3 (08:27→09:48)
[2022-08-11] MEDS ORDERED: LACTATED RINGERS 1,000 ML IV ONE (09:00)
[2022-08-11] MEDS ORDERED: ONDANSETRON 4 MG/2 ML VIAL IVP STA (09:15)
[2022-08-11] MEDS ORDERED: LIDOCAINE-MPF 1% 5 ML VIAL SUBQ ONE (09:15)
[2022-08-11] MEDS ORDERED: MIDAZOLAM 2 MG/2 ML VIAL IVP ONE (09:20)
[2022-08-11] MEDS ORDERED: fentaNYL 100 MCG/2 ML VIAL IVP STA (09:20)
--- NOTE | 2022-08-11 10:32 | CT Report ---
PROCEDURE: RT LUNG BX PERC Sedation analgesia for 30 minutes. INDICATIONS: RUL NODULE TECHNIQUE: The indications, alternatives, benefits, risks, and possible complications of the procedure were comm unicated to the patient. Informed written consent from the patient was obtained and placed in the art. Continuous EKG and hemodynamic monitoring was started by trained personnel. For radiation dose reduction, the following was used: automated exposure control, adjustment of mA and/or kV according to patient size. The patient was brought to the CT suite and coal shooter spiral CT imaging was performed with localization g rid. The appropriate site for percutaneous access to the biopsy target was marked, was prepped and d raped sterilely, and was infused with local anaesthesia. Under CT guidance, a core biopsy trocar and needle set was advanced to the biopsy target, and specimen(s) were obtained. The trocar and needle were then removed, and the patient was sent for post-procedure monitoring. COMPARISON: 07/25/2022 FINDINGS: Biopsy site: Right upper lung nodule Needle: 20 gauge biopsy needle with introducer trocar. Number of passes: 5 Medications: 1% lidocaine for local anaesthesia. IV Fentanyl and Versed for conscious sedation for 30 minutes (see nursing record). Complications: None. IMPRESSION: Successful CT-guided biopsy of right upper lung nodule, pathology results pending.. Reviewed by: Nayan Knight MD on 08/11/2022 10:30 AM PDT Approved by: Nayan Knight MD on 08/11/2022 10:30 AM PDT Station ID: [id number]
[2022-08-11 13:13] VITALS: BP 110/63
--- NOTE | 2022-08-11 14:31 | XRAY Report ---
PROCEDURE: Post Thoracentesis 1V CXR INDICATIONS: Post Lung Biopsy Imaging TECHNIQUE: One view of the chest was acquired. COMPARISON: None. FINDINGS: Surgical changes and devices: A left portacatheter terminates in the mid SVC. Lungs and pleura: Mild lower lung atelectasis. Lung nodules are better seen on CT. Questionable trac e apex pneumothorax. Mediastinum: Normal heart size Bones and chest wall: No suspicious bony lesions. Overlying soft tissues appear unremarkable. IMPRESSION: Questionable trace right apex pneumothorax. No significant enlargement. Patient is asympt omatic. Return precautions discussed prior to discharge. Reviewed by: Nayan Knight MD on 08/11/2022 2:30 PM PDT Approved by: Nayan Knight MD on 08/11/2022 2:30 PM PDT Station ID: [id number]
== END 2022-08-11 07:33 | disposition home or self-care (01) ==
LOC: DI 07:32
PROVIDERS: ATTEND Internal Medicine Hematology & Oncology
DX: C34.11 Malignant neoplasm of upper lobe, right bronchus or lung (principal)
CPT/HCPCS: 32408; 36415; 85610; 85730; J7120

== ENCOUNTER 2023-02-27 11:07 | Outpatient (CLI) | payer MEDICARE, OTHER ==
--- NOTE | 2023-03-02 11:27 | Mammography Report ---
BILATERAL DIGITAL SCREENING MAMMOGRAM 3D/2D: 02/27/2023 CLINICAL: Routine screening. Comparison is made to exams dated: 02/26/2022 mammogram, 01/22/2021 mammogram, 03/09/2019 mammogram, 02/22/2018 mammogram, 02/18/2017 mammogram - [facility], and 02/06/2016 mammogram - [facility]. There are scattered areas of fibroglandular density in both breasts (category b / 25%-50% glandular t issue). In the left breast, there is a focal asymmetry in the upper inner quadrant at middle depth. No other significant masses, calcifications, or other findings are seen in either breast. IMPRESSION: INCOMPLETE: NEEDS ADDITIONAL IMAGING EVALUATION Left breast upper inner quadrant middle depth focal asymmetry. Needs additional imaging evaluation. A diagnostic mammogram and ultrasound is recommended. Based on the Tyrer Cuzick model (a risk assessment model) the patients lifetime risk is 3.3% and her 10 year risk is 2.4%. According to the ACR, ACS, and NCCN guidelines, an annual breast MRI exam arnoldo g with mammogram is recommended if the patients lifetime risk is 20% or greater. This exam was interpreted at Station ID: [id number]. NOTE: For mammograms, a report in lay terms will be sent to the patient. Approximately 15% of breast malignancies will not be visualized mammographically. In the management of a palpable breast mass, a negative mammogram must not discourage biopsy of a clinically suspicious lesion. Electronically Signed By: Sulma Ness M.D. esb/:03/01/2023 17:49:41 ACR BI-RADS Category 0: Incomplete 3340F PARENCHYMAL PATTERN: (A) - The breast(s) demonstrate(s) scattered fibroglandular densities. BI-RADS CATEGORY: (0) - 0 Mammo and [place] [id number] Immediate follow-up LATERALITY: (B)
== END 2023-02-27 11:08 | disposition home or self-care (01) ==
LOC: DI 11:07
DX: Z12.31 Encounter for screening mammogram for malignant neoplasm of breast (principal); R92.8 Other abnormal and inconclusive findings on diagnostic imaging of breast; R92.323 Mammographic fibroglandular density, bilateral breasts

== ENCOUNTER 2023-03-12 08:13 | Outpatient (CLI) | payer MEDICARE, OTHER ==
--- NOTE | 2023-03-12 17:03 | Ultrasound Report ---
LIMITED ULTRASOUND OF LEFT BREAST: 03/12/2023 CLINICAL: Patient returns today to evaluate a focal asymmetry in the left breast. Comparison is made to exams dated: 03/12/2023 mammogram, 02/27/2023 mammogram, 02/26/2022 mammogram, 01/22/2021 mammogram, 03/09/2019 mammogram, and 02/22/2018 mammogram - [facility]. Color flow and real-time ultrasound of the left breast 11-12 o'clock region were performed. Choi sca le images of the real-time examination were reviewed. There is a benign 0.7 cm x 0.6 cm x 0.3 cm oval simple cyst in the left breast at 11 o'clock middle d epth 9 cm from the nipple. This oval simple cyst is anechoic. This correlates with mammography find ings. Color flow imaging demonstrates that there is no vascularity present. IMPRESSION: BENIGN There is no sonographic evidence of malignancy. The 0.7 cm simple cyst in the left breast is benign. A 1 year screening mammogram is recommended. Exam findings were conveyed to the patient. This exam was interpreted at Station ID: [id number]. Electronically Signed By: Jose Young M.D. slc/:03/12/2023 10:14:22 Ultrasound BI-RADS: 2 Benign BI-RADS CATEGORY: (2) - 2 Mammogram [id number] 1 year screening LATERALITY: (B)
--- NOTE | 2023-03-12 17:03 | Mammography Report ---
UNILATERAL LEFT DIGITAL DIAGNOSTIC MAMMOGRAM 3D/2D WITH SPOT COMPRESSION: 03/12/2023 CLINICAL: Patient returns today to evaluate a focal asymmetry in the left breast. Comparison is made to exams dated: 02/27/2023 mammogram, 02/26/2022 mammogram, 01/22/2021 mammogram, 03/09/2019 mammogram, 02/22/2018 mammogram, and 02/18/2017 mammogram - [facility]. There are scattered areas of fibroglandular density in the left breast (category b / 25%-50% glandula r tissue). There is a 0.8 cm focal asymmetry in the left breast at 11 o'clock middle depth. No other significant masses or calcifications are seen in the breast. IMPRESSION: INCOMPLETE: NEEDS ADDITIONAL IMAGING EVALUATION The 0.8 cm focal asymmetry in the left breast most likely is a cyst and is indeterminate. A targeted ultrasound is recommended and will immediately follow. Based on the Tyrer Cuzick model (a risk assessment model) the patients lifetime risk is 3.3% and her 10 year risk is 2.4%. According to the ACR, ACS, and NCCN guidelines, an annual breast MRI exam arnoldo g with mammogram is recommended if the patients lifetime risk is 20% or greater. This exam was interpreted at Station ID: [id number]. NOTE: For mammograms, a report in lay terms will be sent to the patient. Approximately 15% of breast malignancies will not be visualized mammographically. In the management of a palpable breast mass, a negative mammogram must not discourage biopsy of a clinically suspicious lesion. Electronically Signed By: Jose Young M.D. slc/:03/12/2023 09:09:08 ACR BI-RADS Category 0: Incomplete 3340F PARENCHYMAL PATTERN: (A) - The breast(s) demonstrate(s) scattered fibroglandular densities. BI-RADS CATEGORY: (0) - 0 Ultrasound [id number] Immediate follow-up LATERALITY: (B)
== END 2023-03-12 08:14 | disposition home or self-care (01) ==
LOC: DI 08:13
PROVIDERS: ATTEND Internal Medicine
DX: N60.02 Solitary cyst of left breast (principal); R92.322 Mammographic fibroglandular density, left breast

== ENCOUNTER 2023-07-27 08:08 | Outpatient (CLI) | payer MEDICARE, OTHER ==
[2023-07-27 08:23] LABS: BASOPHILS % (AUTO) 1.1 %; EOSINOPHILS # (AUTO) 0.4 10^3/uL (0.0-0.7); EOSINOPHILS % (AUTO) 10.4 %; HCT - HEMATOCRIT 41.8 % (37.0-47.0); HGB - HEMOGLOBIN 12.9 g/dL (12.0-16.0); LYMPHOCYTES # (AUTO) 0.9 10^3/uL (1.5-3.5); LYMPHOCYTES % (AUTO) 23.2 %; MEAN CORPUSCULAR HGB CONC 30.9 g/dL (32.0-36.0); MEAN CORPUSCULAR VOLUME 93.9 fL (81.0-99.0); MEAN PLATELET VOLUME 8.6 fL (7.9-10.8); MONOCYTES # (AUTO) 0.5 10^3/uL (0.0-1.0); MONOCYTES % (AUTO) 12.3 %; PLT - PLATELET COUNT 267 10^3/uL (130-450); RED BLOOD COUNT 4.45 10^6/uL (4.20-5.40); RED CELL DISTRIBUTION WIDTH 13.5 % (12.0-15.0); WHITE BLOOD COUNT 3.7 x10^3/uL (4.8-10.8)
[2023-07-27 08:41] LABS: ALBUMIN/GLOBULIN RATIO 1.8 (1.0-2.2); ALKALINE PHOSPHATASE 88 IU/L (42-121); ALT ALANINE AMINOTRANSFERASE 13 IU/L (10-60); AST ASPARTATE AMINOTRANSFERASE 14 IU/L (10-42); BILIRUBIN,TOTAL 0.6 mg/dL (0.2-1.0); BUN - BLOOD UREA NITROGEN 12 mg/dL (6-20); CALCIUM 9.7 mg/dL (8.5-10.3); CARBON DIOXIDE - CO2 30 mmol/L (21-32); CHLORIDE 105 mmol/L (101-111); CHOL/HDL RATIO 2.5 (<4.4); CHOLESTEROL 174 mg/dL; CREATININE 0.8 mg/dL (0.6-1.3); GFR - MDRD 71 (>89); GLUCOSE 110 mg/dL (74-104); HDL CHOLESTEROL 70 mg/dL; LDL CHOLESTEROL,CALCULATED 82 mg/dL; LDL/HDL RATIO 1.2 (<4.4); POTASSIUM 4.3 mmol/L (3.5-4.5); SODIUM 139 mmol/L (135-145); TOTAL PROTEIN 6.2 g/dL (6.4-8.9); TRIGLYCERIDES 112 mg/dL (48-352); VLDL CHOLESTEROL 22 mg/dL
[2023-07-27 08:54] LABS: THYROID STIMULATING HORMONE 2.11 uIU/mL (0.34-5.60)
[2023-07-27 11:21] LABS: ESTIMATED AVERAGE GLUCOSE 123 mg/dL (70-100); HEMOGLOBIN A1c% 5.9 % (4.27-6.07)
== END 2023-07-27 08:09 | disposition home or self-care (01) ==
LOC: LAB 08:08
PROVIDERS: ATTEND Internal Medicine
DX: E78.5 Hyperlipidemia, unspecified (principal); Z79.899 Other long term (current) drug therapy; R73.01 Impaired fasting glucose
CPT/HCPCS: 36415; 80053; 80061; 83036; 83721; 84443; 85025

== ENCOUNTER 2024-01-25 12:18 | Outpatient (CLI) | payer MEDICARE, OTHER ==
[2024-01-25] MEDS ORDERED: iohexoL-300 100 ML VIAL ONE (12:23)
[2024-01-25] MEDS ORDERED: DIATRIZOATE MEGLU/DIATRIZO SOD 30 ML BOTTLE PO ONE (12:23)
[2024-01-25] MEDS: DIATRIZOATE MEGLU/DIATRIZO SOD 30 ML BOTTLE PO ONE (13:49)
[2024-01-25] MEDS: iohexoL-300 100 ML VIAL IVP ONE (13:49)
--- NOTE | 2024-01-26 10:37 | CT Report ---
PROCEDURE: Chest W INDICATIONS: GEJ ADENOCARCINOMA CONTRAST: 100ml [id number] TECHNIQUE: After the administration of intravenous contrast, a CT scan of the chest was performed. Images were recorded and evaluated at appropriate window settings. Reformats: axial MIP of the chest, coronal and sagittal. For radiation dose reduction, the following was used: automated exposure control, adjustme nt of mA and/or kV according to patient size. COMPARISON: Several prior studies, the most recent from 10/13/2023 FINDINGS: Image quality: Diagnostic. Chest wall and lower neck: No thyroid nodule which requires sonographic follow up. No breast mass. No axillary or supraclavicular adenopathy by size. Left chest Mediport. Lungs and pleura: Soft tissue nodule right posterior infrahilar region immediately adjacent to the es ophagus measures 2.5 cm, previously 2.4 cm measuring at the same direction. Minor lingular and right middle lobe atelectatic changes, slightly more pronounced compared to prior. Similar right posterior upper lobe subpleural interstitial scarring due to postsurgical change. A small peripheral patch of t ree-in-bud nodularity is seen laterally in the right middle lobe at the infrahilar level. No pleural effusions. No pneumothorax. No new suspicious nodules or masses. Central and peripheral airways are normal caliber without bronchial wall thickening or bronchiectasis. Mediastinum: Heart size is normal. Moderate coronary artery calcification. No pericardial effusion. M ild aortic arch and great vessel origin calcification. No mediastinal adenopathy by size criteria. Se veral lymph nodes throughout the mediastinum and hilum have become slightly more well-defined, but no ne are pathologically enlarged. Surgical changes of esophagectomy and gastric pull-through. Bones: No aggressive osseous abnormality. Upper Abdomen: Dictated separately. IMPRESSION: Relatively stable soft tissue nodule or right infrahilar lymph node in the right lower lobe adjacent esophagus. Findings remain suspicious for metastatic disease. Slightly more prominent, but nonenlarged mediastinal and hilar lymph nodes, nonspecific. A small patch of airspace disease in the lateral right middle lobe is probably infectious or inflamma tory. Attention on follow-up exams is recommended. Esophagectomy and gastric pull-through Reviewed by: Korina Maier MD on 01/26/2024 10:36 AM PDT Approved by: Korina Maier MD on 01/26/2024 10:36 AM PDT Station ID: [id number]
--- NOTE | 2024-01-26 10:44 | CT Report ---
PROCEDURE: Abdomen/Pelvis W INDICATIONS: GEJ ADENOCARCINOMA CONTRAST: 100ml [id number] TECHNIQUE: After the administration of intravenous contrast, a CT scan of the abdomen and pelvis was performed. Images were recorded and evaluated at appropriate window settings. Reformats: coronal and sagittal. F or radiation dose reduction, the following was used: automated exposure control, adjustment of mA and /or kV according to patient size. COMPARISON: Several prior studies, the most recent from 10/13/2023 FINDINGS: Image quality: Diagnostic. Lower chest: Dictated separately Liver: Small, stable right hepatic lobe cysts or benign hemangiomas. No new solid mass. Gallbladder: Cholelithiasis. No wall thickening. Biliary tree: No intrahepatic or extrahepatic dilation, accounting for age. Spleen: No splenomegaly. Pancreas: Normal enhancement. No mass or pancreatic ductal dilatation. Adrenals: No adrenal nodule. Kidneys and ureters: No hydronephrosis. No renal cystic lesion which requires follow up. No solid mas s. Stomach, bowel and peritoneum: Gastric pull-through. Small bowel loops appear normal. No obstruction. The appendix is not seen. Normal colon. No pathologic free fluid. Lymph nodes: No central or retroperitoneal adenopathy. Vessels: No infrarenal aortic aneurysm. Patent portal vein. PELVIS Reproductive organs: Hysterectomy. Ovaries are not seen. No suspicious adnexal mass. Bladder: No abnormal wall thickening, accounting for underdistention. Pelvic lymph nodes: No pelvic adenopathy by size criteria. Bones: L2 vertebral body hemangioma. No new suspicious bone lesions. Degenerative changes at L5-S1 an d in both sacroiliac joints. Other: No significant ventral or inguinal hernia. IMPRESSION: No evidence of metastatic disease abdomen or pelvis. Cholelithiasis. Reviewed by: Korina Maier MD on 01/26/2024 10:43 AM PDT Approved by: Korina Maier MD on 01/26/2024 10:43 AM PDT Station ID: [id number]
== END 2024-01-25 12:19 | disposition home or self-care (01) ==
LOC: MAC.INF 12:18
PROVIDERS: ATTEND Internal Medicine Medical Oncology
DX: C15.9 Malignant neoplasm of esophagus, unspecified (principal); R91.8 Other nonspecific abnormal finding of lung field; Z90.49 Acquired absence of other specified parts of digestive tract; K80.20 Calculus of gallbladder without cholecystitis without obstruction
CPT/HCPCS: 71260; 74177; Q9963; Q9967